=== PATIENT | male | born 1980 | race Hispanic/Latino ===

== ENCOUNTER 2022-02-27 19:12 | Emergency (ER) | payer SELFPAY ==
[2022-02-27 19:18] VITALS: BP 136/90; PULSE 76; RESP 16; TEMP 36.5; O2SAT 100
--- NOTE | 2022-02-27 21:21 | ED.LOWEXIN ---
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 Patient states he has had these varicose veins for 10 years, but he got hit in the knee last night while playing soccer, and acutely worsened. States the left knee is swollen and painful in addition to increased size of the veins. He is able to walk on the knee, and denies any bony pain. Denies any calf pain, hip pain, other injury sustained in the incident. No history of DVT. Related Data Allergies Allergy/AdvReac Type Severity Reaction Status Date / Time No Known Allergies Allergy Verified 02/27/22 21:32 Review of Systems Review of Systems: Gen.: Denies fevers or chills Eyes: Denies eye pain or visual change ENT: Denies congestion Respiratory: Denies shortness of breath or cough CV: Denies chest pain or palpitations GI: Denies abdominal pain nausea, emesis or diarrhea denies burning, urgency, frequency or hematuria Musculoskeletal: Reports left-sided vein swelling. Neuro: Denies numbness, tingling, weakness or focal weakness Skin: Denies rash Except as documented, all other systems reviewed and negative All systems reviewed & are unremarkable except as noted in HPI and below Exam Narrative: Gen: Alert, oriented, no acute distress Eyes: EOMI, no icterus Pulm: Respirations even and unlabored, symmetric thorax expansion, no audible stridor or visible cyanosis GI: No distension, no voluntary/involuntary guarding Neuro: AOx4, moves all extremities without apparent difficulty or weakness, follows commands MSK: Patient has numerous, non-tender large varicosities alongside left knee. No calf redness or tenderness, leg swelling. Ambulating without pain. No pain along patella, femur or tib/fib. Skin: No jaundice, no visible bruising, rashes, lesions or wounds on exposed skin Psych: Normal mood/affect, insight/judgement good, adequate fund of knowledge, recent/remote memory intact Course Vital Signs Vital signs: Vital Signs Temperature 97.7 F 02/27/22 19:18 Pulse Rate 76 02/27/22 19:18 Respiratory Rate 16 05/18/22 19:18 Blood Pressure 136/90 05/18/22 19:18 Pulse Oximetry 100 02/27/22 19:18 Temperature 97.7 F 02/27/22 19:18 Pulse Rate 76 02/27/22 19:18 Respiratory Rate 16 02/27/22 19:18 Blood Pressure 136/90 02/27/22 19:18 Pulse Oximetry 100 02/27/22 19:18 MDM - Extremity Injury (Lower) MDM Narrative Medical decision making narrative: 41-year-old male here for evaluation of increased size of his varicose veins on the left knee. Vital signs stable, no bony tenderness patient is ambulating without issue, so felt x-rays were unnecessary. Likely superficial thrombophlebitis, dimer was negative so doubt concomitant DVT. Advise follow-up with his primary care provider for evaluation of his varicose veins, but provided reassurance and advised compression for his symptoms in the meantime. He voiced understanding and we discussed return precautions. Lab Data Labs: Lab Results 02/27/22 Range/Units 21:54 D-Dimer 0.39 (<0.48) ug/mL Discharge Plan Discharge Clinical Impression: Varicose veins of left lower extremity Patient Disposition: Home, Self-Care Condition: Stable Instructions: Antibiotic Form Additional Instructions: The blood test we obtained was negative for blood clot. Return to the emergency department if one of your legs becomes very swollen, red, or painful. Follow-up with your primary care physician for evaluation of varicose veins. Follow-up/Referrals: PHYSICIAN,SERVICES DELIVERY DRIVER [Primary Care Provider] -
[2022-02-27 22:13] LABS: D Dimer 0.39 ug/mL (<0.48)
== END 2022-02-27 23:05 | disposition home or self-care (01) ==
PROVIDERS: Physician Assistant; Emergency Provider Emergency Medicine
DX: I83.92 Asymptomatic varicose veins of left lower extremity (principal)
CPT/HCPCS: 36415; 85380; 99283